=== PATIENT | female | born 1970 | race Caucasian/White ===

== ENCOUNTER 2019-05-11 16:57 | Inpatient (IN) | payer OTHER ==
[~2019-05-11] VITALS: Ht 160 cm; Wt 81.8 kg
[~2019-05-11 16:57] MED LIST: ASPI-496 PO; ASPI81TA45 PO; ATOR40TA PO; ATOR40TA78 PO; CARV3.1212 PO; CARV3.122 PO; CLOP75TA52 PO; HYDR1TAB13 PO; IBUP-1221 PO; NITR0.4T28 SL; ONDA4TAB10 PO; OXYC-302 PO
--- NOTE | 2019-05-11 17:15 | NUR ---
THIS IS A 48 YO F BIB EMS FROM CARDIOLOGY. PT REPORTED CP 8/10 WHILE ON T[facility]MILL. PAIN WENT AWAY AFTER STEPPING OFF. DENIES PAIN NOW. DENIES DIZZINESS/N/V. VS STABLE. PT CONNECTED TO ALL MONITORING. NADN. PT PLACED IN GOWN. CALL LIGHT IN REACH. AT BEDSIDE FOR EVAL. AWAITING ORDERS.
--- NOTE | 2019-05-11 17:23 | NUR ---
REPORT GIVEN TO BASILIO FUENTES.
[2019-05-11] MEDS ORDERED: HEPARIN 5,000 UNITS/ML, 1ML IV PRN (17:30)
[2019-05-11] MEDS ORDERED: HEPARIN 5,000 UNITS/ML, 1ML IV ONE ×2 (17:30)
[2019-05-11] MEDS ORDERED: HEPARIN 25,000 UNITS/250ML PMX 250 ML IV PRN ×2 (17:30)
[2019-05-11] MEDS ORDERED: HEPARIN 25,000 UNITS/250ML PMX 250 ML ONE (17:35)
[2019-05-11] MEDS ORDERED: HEPARIN 5,000 UNITS/ML, 1ML ONE (17:35)
--- NOTE | 2019-05-11 17:47 | NUR ---
PT RESTING IN [facility]. HEPARIN VERIFIED BY 2 RN. CHELLE. VSS. NO NEEDS AT THIS TIME
[2019-05-11 17:49] LABS: BASOPHILS # (AUTO) 0.04 x10^3/uL (0-0.1); BASOPHILS % (AUTO) 1 % (0-1); EOSINOPHILS # (AUTO) 0.25 x10^3/uL (0-0.4); EOSINOPHILS % (AUTO) 4 % (1-7); LYMPHOCYTES # (AUTO) 1.64 x10^3/uL (1-3.4); LYMPHOCYTES % (AUTO) 28 % (22-44); MD NO; MEAN CORPUSCULAR HEMOGLOBIN 26.6 pg (27.0-34.8); MEAN CORPUSCULAR HGB CONC 33.3 g/dL (32.4-35.8); MEAN CORPUSCULAR VOLUME 80.1 fL (80-100); MEAN PLATELET VOLUME 9.2 fL (7.4-10.4); MONOCYTES # (AUTO) 0.55 x10^3/uL (0.2-0.8); MONOCYTES % (AUTO) 9 % (2-9); NEUTROPHILS # (AUTO) 3.33 x10^3/uL (1.8-6.8); NEUTROPHILS % (AUTO) 57 % (42-75); PLATELET COUNT 319 x10^3/uL (130-400); RED BLOOD COUNT 4.78 x10^6/uL (3.82-5.3); RED CELL DISTRIBUTION WIDTH 16.4 % (9.6-15.2)
[2019-05-11 18:00] LABS: ALBUMIN 3.1 g/dL (3.4-5.0); ANION GAP 5 mmol/L (5-15); CALCIUM 8.4 mg/dL (8.5-10.1); CHLORIDE 106 mmol/L (98-107); CREATININE 0.62 mg/dL (0.55-1.02)
[2019-05-11 18:03] LABS: TROPONIN I < 0.015 ng/mL (0.000-0.045)
--- NOTE | 2019-05-11 18:22 | NUR ---
PT AMBULATED TO BATHROOM
--- NOTE | 2019-05-11 19:09 | NUR ---
PT RESTING IN GURNEY. DENIES CHEST PAIN. ADMITTING MD IS BEDSIDE.
[2019-05-11] MEDS ORDERED: ONDANSETRON 2MG/ML, 2ML IVPush PRN (19:30)
[2019-05-11] MEDS ORDERED: ACETAMINOPHEN 325 MG TABLET PO PRN (19:30)
[2019-05-11] MEDS ORDERED: NITROGLYCERIN 0.4 MG BOTTLE (25 TABS) SL PRN (19:30)
[2019-05-11] MEDS ORDERED: POLYETHYLENE GLYCOL 17 GM PACKET PO PRN (19:30)
[2019-05-11] MEDS ORDERED: ZOLPIDEM 5MG TABLET PO PRN (19:30)
[2019-05-11] MEDS ORDERED: hydrALAzine 20 MG/ML, 1ML IVPush PRN (19:30)
[2019-05-11] MEDS ORDERED: ONDANSETRON ODT 4 MG PO PRN (19:30)
[2019-05-11] MEDS ORDERED: morphine SULFATE 10 MG/ML, 1ML IVPush PRN (19:30)
[2019-05-11] MEDS ORDERED: BISACODYL 10 MG SUPP PR PRN (19:30)
--- NOTE | 2019-05-11 19:49 | NUR ---
PT RESTING IN [facility]. SON BEDSIDE. EDUCATED ON PLAN OF CARE
[2019-05-11 20:28] LABS: HCT (SEDRATE) 38.3 % (34.6-47.8)
[2019-05-11 20:38] LABS: FREE T4 (FREE THYROXINE) 1.05 ng/dL (0.76-1.46); TROPONIN I < 0.015 ng/mL (0.000-0.045)
[2019-05-11] MEDS: FAMOTIDINE 20 MG TABLET PO SCH (21:00)
[2019-05-11] MEDS: CARVEDILOL 3.125 MG TABLET PO SCH (22:42)
[2019-05-11] MEDS: ATORVASTATIN 40 MG TABLET PO SCH (22:42)
[2019-05-12] MEDS: HEPARIN 5,000 UNITS/ML, 1ML IV PRN ×3 (00:22→14:45)
[2019-05-12 00:31] VITALS: BP 106/69
[2019-05-12 01:44] LABS: TROPONIN I < 0.015 ng/mL (0.000-0.045)
[2019-05-12] MEDS ORDERED: ASPIRIN 325 MG TABLET EC PO SCH (06:00)
[2019-05-12 06:30] LABS: BASOPHILS # (AUTO) 0.03 x10^3/uL (0-0.1); BASOPHILS % (AUTO) 1 % (0-1); EOSINOPHILS % (AUTO) 6 % (1-7); LYMPHOCYTES # (AUTO) 1.51 x10^3/uL (1-3.4); LYMPHOCYTES % (AUTO) 33 % (22-44); MD NO; MEAN CORPUSCULAR HEMOGLOBIN 26.5 pg (27.0-34.8); MEAN CORPUSCULAR VOLUME 80.4 fL (80-100); MEAN PLATELET VOLUME 9.2 fL (7.4-10.4); MONOCYTES # (AUTO) 0.44 x10^3/uL (0.2-0.8); MONOCYTES % (AUTO) 9 % (2-9); NEUTROPHILS # (AUTO) 2.38 x10^3/uL (1.8-6.8); NEUTROPHILS % (AUTO) 51 % (42-75); PLATELET COUNT 261 x10^3/uL (130-400); RED BLOOD COUNT 4.99 x10^6/uL (3.82-5.3); RED CELL DISTRIBUTION WIDTH 16.1 % (9.6-15.2)
[2019-05-12 06:41] LABS: ANION GAP 6 mmol/L (5-15); CALCIUM 8.4 mg/dL (8.5-10.1); CHLORIDE 109 mmol/L (98-107); CREATININE 0.55 mg/dL (0.55-1.02); TRIGLYCERIDES 150 mg/dL (50-200); VLDL CHOLESTEROL 30 mg/dL (0-25)
[2019-05-12 06:42] LABS: CHOL/HDL RATIO 2.9; CHOLESTEROL, TOTAL 110 mg/dL (140-239); HDL CHOL % 35 % (28-40); HDL CHOLESTEROL (DIRECT) 38 mg/dL (40-60); LDL CHOLESTEROL,CALCULATED 42 mg/dL (54-169); LDL/HDL RATIO 1.1 (0.5-3.0)
[2019-05-12] MEDS: FAMOTIDINE 20 MG TABLET PO SCH ×2 (07:58→21:10)
[2019-05-12] MEDS: CLOPIDOGREL 75 MG TABLET PO SCH (07:58)
[2019-05-12] MEDS: SODIUM CHLORIDE 0.9% 1,000 ML IV SCH ×2 (08:28→18:23)
[2019-05-12 08:52] VITALS: BP 102/69
[2019-05-12] MEDS: CARVEDILOL 3.125 MG TABLET PO SCH ×2 (09:23→21:11)
[2019-05-12 14:48] VITALS: BP 112/74
[2019-05-12] MEDS ORDERED: TICAGRELOR 90 MG TABLET ONE (16:29)
[2019-05-12] MEDS ORDERED: FENTANYL PF 100 MCG/2ML ONE (16:29)
[2019-05-12] MEDS ORDERED: HEPARIN 1,000 UNITS/ML, 10ML ONE (16:29)
[2019-05-12] MEDS ORDERED: BIVALIRUDIN 250 MG ONE (16:29)
[2019-05-12] MEDS ORDERED: MIDAZOLAM 1 MG/ML, 5ML ONE (16:29)
[2019-05-12] MEDS ORDERED: LIDOCAINE 2%, 20ML ONE (16:29)
[2019-05-12] MEDS ORDERED: VERAPAMIL 2.5 MG/ML, 2ML ONE (16:29)
[2019-05-12] MEDS: ATORVASTATIN 40 MG TABLET PO SCH (21:11)
[2019-05-12 21:13] VITALS: BP 99/65
[2019-05-13] MEDS: HEPARIN 5,000 UNITS/ML, 1ML IV PRN (01:07)
[2019-05-13 01:51] VITALS: BP 97/67
[2019-05-13] MEDS: SODIUM CHLORIDE 0.9% 1,000 ML IV SCH ×4 (04:30→20:09)
[2019-05-13 06:00] LABS: BASOPHILS # (AUTO) 0.15 x10^3/uL (0-0.1); BASOPHILS % (AUTO) 3 % (0-1); EOSINOPHILS # (AUTO) 0.31 x10^3/uL (0-0.4); EOSINOPHILS % (AUTO) 5 % (1-7); LYMPHOCYTES # (AUTO) 1.87 x10^3/uL (1-3.4); LYMPHOCYTES % (AUTO) 32 % (22-44); MD NO; MEAN CORPUSCULAR HEMOGLOBIN 26.4 pg (27.0-34.8); MEAN CORPUSCULAR HGB CONC 32.6 g/dL (32.4-35.8); MEAN CORPUSCULAR VOLUME 81.1 fL (80-100); MONOCYTES % (AUTO) 10 % (2-9); NEUTROPHILS # (AUTO) 2.95 x10^3/uL (1.8-6.8); NEUTROPHILS % (AUTO) 50 % (42-75); PLATELET COUNT 254 x10^3/uL (130-400); RED BLOOD COUNT 5.17 x10^6/uL (3.82-5.3); RED CELL DISTRIBUTION WIDTH 16.8 % (9.6-15.2)
[2019-05-13] MEDS ORDERED: ASPIRIN 81 MG TABLET EC PO SCH (06:00)
[2019-05-13 06:11] LABS: ANION GAP 5 mmol/L (5-15); CALCIUM 8.3 mg/dL (8.5-10.1); CHLORIDE 111 mmol/L (98-107)
[2019-05-13 06:13] LABS: CREATININE 0.54 mg/dL (0.55-1.02)
[2019-05-13 08:08] VITALS: BP 106/72
[2019-05-13] MEDS: CARVEDILOL 3.125 MG TABLET PO SCH ×2 (08:20→21:00)
[2019-05-13] MEDS: FAMOTIDINE 20 MG TABLET PO SCH ×2 (08:21→21:00)
[2019-05-13] MEDS: CLOPIDOGREL 75 MG TABLET PO SCH (08:21)
[2019-05-13] MEDS ORDERED: TICAGRELOR 90 MG TABLET ONE (12:06)
[2019-05-13] MEDS ORDERED: MIDAZOLAM 1 MG/ML, 5ML ONE (12:06)
[2019-05-13] MEDS ORDERED: BIVALIRUDIN 250 MG ONE (12:06)
[2019-05-13] MEDS ORDERED: FENTANYL PF 100 MCG/2ML ONE (12:06)
[2019-05-13] MEDS ORDERED: VERAPAMIL 2.5 MG/ML, 2ML ONE (12:06)
[2019-05-13] MEDS ORDERED: LIDOCAINE-MPF 1%, 5ML ONE (12:07)
[2019-05-13] MEDS ORDERED: HEPARIN 1,000 UNITS/ML, 10ML ONE (12:07)
[2019-05-13 12:30] VITALS: BP 117/81
[2019-05-13 13:56] VITALS: BP 113/81
[2019-05-13 20:09] VITALS: BP 111/74
[2019-05-13] MEDS: ATORVASTATIN 40 MG TABLET PO SCH (21:00)
[2019-05-13 21:59] VITALS: BP 119/71
== END 2019-05-13 23:35 | disposition home or self-care (01) | DRG 287 ==
LOC: ED 18:55 → EDIP 19:58 → 5SO 20:23
PROVIDERS: ADMIT Hospitalist; ATTEND Hospitalist
PROC: 4A023N7 Measurement of Cardiac Sampling and Pressure, Left Heart, Percutaneous Approach (ICD-10-PCS; principal; 2019-05-13)
PROC: B2151ZZ Fluoroscopy of Left Heart using Low Osmolar Contrast (ICD-10-PCS; 2019-05-13)
PROC: B2111ZZ Fluoroscopy of Multiple Coronary Arteries using Low Osmolar Contrast (ICD-10-PCS; 2019-05-13)
DX: R07.9 Chest pain, unspecified (principal); K21.9 Gastro-esophageal reflux disease without esophagitis; E78.5 Hyperlipidemia, unspecified; I25.10 Atherosclerotic heart disease of native coronary artery without angina pectoris; Z98.61 Coronary angioplasty status; Z83.3 Family history of diabetes mellitus; Z86.72 Personal history of thrombophlebitis
CPT/HCPCS: 36415; 71045; 80048; 80061; 82040; 83036; 83880; 84439; 84443; 84484; 85025; 85520; 85651; 93005; 93306; 93458; 96374; 96375; 99156; C1769; C1894; G0378; J0583; J1644; J2250; J2405; J3010; J2270; J7030; Q9967